=== PATIENT | female | born 1960 | race Caucasian/White ===

== ENCOUNTER → 2016-07-10 | Outpatient (CLI) | payer OTHER | LOC: FIMAGING 11:10 | PROVIDERS: ATTEND Internal Medicine | DX: Z12.31 Encounter for screening mammogram for malignant neoplasm of breast (principal) | CPT/HCPCS: G0202 ==

== ENCOUNTER → 2017-02-20 | Outpatient (CLI) | payer OTHER | LOC: BMCIMAGING 19:03 | PROVIDERS: ATTEND Family Medicine | DX: S22.42XA Multiple fractures of ribs, left side, initial encounter for closed fracture (principal) ==

== ENCOUNTER 2017-02-28 19:22 | Emergency (ER) | payer OTHER ==
[2017-02-28 19:40] VITALS: RESP 16; TEMP 98.6
--- NOTE | 2017-02-28 19:53 | EDPHY ---
H & P Time Seen by Provider: 02/28/17 19:52 HPI/ROS: Chief complaint. Side pain HPI. 56-year-old female presents emergency department with pain in the posterior left ribs. Patient had a respiratory infection 2 weeks ago and apparently with coughing she broke a couple ribs. She had a chest x-ray in our system that shows acute versus subacute fractures of the left posterior lateral ribs 7. And 8. She is treated with antibiotics and her illness is improving. Today she was sitting and maybe coughed and twisted and had sudden pain in the left posterior ribs. Hurts to move and twist. She is not short of breath. Injury occurred about 5:30 p.m.. No other complaints. No anterior chest pain or abdominal pain ROS Constitutional. no fever/chills, no weakness Eyes. no problems with vision ENT. no sore throat, no nasal drainage Cardiovascular. Left posterior lateral rib pain Respiratory. no shortness of breath, no cough Abdominal. no abdominal pain, no nausea/vomiting, no diarrhea . no problems urinating MS. no calf pain/swelling, no neck/back pain, no joint pain Skin. no rash Lymph. no swollen glands Neuro. no headache, no dizziness, no difficulty walking or with speech Past Medical/Surgical History: Past medical history is significant for chronic back pain skin cancer, GERD, restless leg syndrome, back surgery, anxiety Social History: , nonsmoker, no alcohol Smoking Status: Current every day smoker Physical Exam: General Appearance: Alert well-developed female moderate distress vital signs stable Eyes: Pupils equal and round no pallor or injection. ENT, Mouth: Mucous membranes are moist. Respiratory: There are no retractions, lungs are clear to auscultation. Cardiovascular: Regular rate and rhythm. Gastrointestinal: Abdomen is soft and nontender, no masses, bowel sounds normal. Neurological: Awake and alert, sensory and motor exams grossly normal. Skin: Warm and dry, no rashes. Musculoskeletal: Neck is supple nontender. Tender lateral ribs mid axillary line approximately T7, T8 Extremities symmetrical, full range of motion. Psychiatric: Patient is oriented X 3, there is no agitation. Constitutional: Initial Vital Signs Temperature (C) 37.0 C 02/28/17 19:38 Heart Rate 91 02/28/17 19:38 Respiratory Rate 16 02/28/17 19:38 Blood Pressure 177/107 H 02/28/17 19:38 O2 Sat (%) 95 02/28/17 19:38 O2 Delivery Mode Room Air Allergies/Adverse Reactions: Sulfa (Sulfonamide Antibiotics) Allergy (Intermediate, Verified 08/28/15 12:38) Dyspnea adhesive tape Allergy (Verified 08/28/15 12:38) Rash Home Medications: Medication Instructions Recorded Citalopram [CeleXA 20 MG] 20 mg PO DAILY 07/27/15 Calcium Carb W/Vit D [Calcium Carb 500 mg PO DAILY 08/22/15 W/Vit D 500/200 (*)] Herbals/Supplements -Info Only 1 ea PO DAILY 08/22/15 Omeprazole 40 mg PO DAILY 08/22/15 Topiramate [Topamax 25MG (*)] 25 - 50 mg PO HS 08/22/15 Zolpidem Tartrate [Ambien 10 mg] 10 mg PO HS PRN 08/22/15 Lidocaine 5% [Lidoderm 5% Patch 1 ea TD DAILY #30 patch 02/28/17 (*)] oxyCODONE/APAP 5/325 [Percocet 1 tab PO Q4-6PRN PRN #7 tab 02/28/17 5/325] Medical Decision Making - Diagnostics Imaging Results: Chest x-ray shows some atelectasis in the left lower lung 0 lung. No obvious rib fractures. I compared it with previous chest x-ray from about 2 weeks ago showing the is acute and subacute fractures. No evidence for pneumothorax or pneumonia Procedures: Ibuprofen, Percocet ED Course/Re-evaluation: Re-evaluation 8:50 p.m.. Patient is stable. The patient and I discussed imaging study results, treatment plan including criteria for return importance of follow-up further evaluation. She expresses understanding and agreement She is more comfortable Differential Diagnosis: Musculoskeletal pain with possible exacerbation of her previous rib fractures. I considered pneumothorax and pneumonia as well - Data Points Medications Given: Discontinued Medications Ibuprofen (Motrin) 600 mg PO EDNOW ONE Stop: 02/28/17 20:04 Last Admin: 02/28/17 20:35 Dose: 600 mg Oxycodone/Acetaminophen (Percocet 5/325) 1 tab PO EDNOW ONE Stop: 02/28/17 20:04 Last Admin: 02/28/17 20:35 Dose: 1 tab Departure - Departure Disposition: Home, Routine, Self-Care Clinical Impression: Acute chest wall pain Condition: Good Instructions: Chest Wall Pain (ED) Additional Instructions: Lidocaine patches using a patch on for 12 hr off for 12 hr at the sore area. Ibuprofen 600 mg every 6 hr as needed for discomfort. Percocet in addition for pain. Return for worsening symptoms. Re-evaluation in 2-3 days if not improving Referrals: Tg Mccray MD [Primary Care Provider] - As per Instructions Prescriptions: Lidocaine 5% [Lidoderm 5% Patch (*)] 1 ea TD DAILY #30 patch oxyCODONE/APAP 5/325 [Percocet 5/325] 1 tab PO Q4-6PRN PRN #7 tab PRN Reason: Pain, Moderate
[2017-02-28] MEDS ORDERED: OXYCODONE/APAP 5/325 TAB PO ONE (20:03)
[2017-02-28] MEDS ORDERED: IBUPROFEN 600 MG TAB PO ONE (20:03)
[2017-02-28] MEDS ORDERED: OXYCODONE/APAP 5/325MG PREPACK#4 BTL TAKEHOME ONE (20:58)
[2017-02-28] MEDS ORDERED: LIDOCAINE 5% 1 EA PATCH TD ONE (20:58)
[2017-02-28] MEDS ORDERED: PATCH REMOVAL 1 EA PATCH TD SCH (21:00)
[2017-02-28 21:37] VITALS: BP 161/89; PULSE 84; O2SAT 94
== END 2017-02-28 21:36 | disposition home or self-care (01) ==
DX: R07.89 Other chest pain (principal); F17.200 Nicotine dependence, unspecified, uncomplicated; Z85.828 Personal history of other malignant neoplasm of skin

== ENCOUNTER → 2017-03-05 | Outpatient (CLI) | payer OTHER | LOC: BMCIMAGING 13:29 | PROVIDERS: ATTEND Internal Medicine | DX: R07.81 Pleurodynia (principal); M84.88 Other disorders of continuity of bone, other site; Z87.81 Personal history of (healed) traumatic fracture ==

== ENCOUNTER → 2017-10-21 | Outpatient (CLI) | payer OTHER | LOC: FIMAGING 12:49 | PROVIDERS: ATTEND Internal Medicine | DX: Z12.31 Encounter for screening mammogram for malignant neoplasm of breast (principal) ==